=== PATIENT | female | born 1980 | race Caucasian/White ===

== ENCOUNTER 2022-11-05 11:31 | Emergency (ER) | payer MEDICARE, MEDICAID ==
[~2022-11-05 11:31] MED LIST: ALBUTEROL
--- NOTE | 2022-11-05 11:43 | ED Upper Extremity ---
General Chief Complaint: Upper Extremity Stated Complaint: RIGHT HAND SWOLLEN/PAINFUL History of Present Illness Date Seen by Provider: Nov 05, 2022 Time Seen by Provider: 11:40 Initial Comments 42-year-old female with PMH of right carpal tunnel surgery few years ago, is here with right hand and wrist swelling with pain. Pain is also radiating up her right arm. 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 Denies fever and chills, injury, falls, trauma. Patient went to [facility] yesterday but was told to follow up with her PCP so she came here today. Allergies and Home Medications Allergies Uncoded Allergies: pcn (Allergy, Unknown, 11/05/22) Patient Home Medication List Home Medication List Reviewed: Yes , (Reported) Entered as Reported by: ANNI MUÑOZ on 01/03/092231 Review of Systems Constitutional: no symptoms reported EENTM: no symptoms reported Respiratory: no symptoms reported Cardiovascular: no symptoms reported Gastrointestinal: no symptoms reported Genitourinary: no symptoms reported Musculoskeletal: see HPI, joint pain, joint swelling, muscle pain, muscle stiffness Skin: no symptoms reported Psychiatric/Neurological: No Symptoms Reported Past Wdiehpw-Qddfgi-Edjyhh Hx Patient Social History Tobacco Use?: Yes Tobacco type used: Cigarettes Smoking Status: Current Everyday Smoker Use of E-Cig and/or Vaping dev: No Substance use?: No Alcohol Use?: No Pt feels they are or have been: No Immunizations Up To Date Influenza Vaccine Up-to-Date: No; Not Current First/Initial COVID19 Vaccinat: Yes COVID19 Vaccine [employer]: [employer] Past Medical History Surgery/Hospitalization HX: Asthma; Carpal Tunnel; ; Hysterectomy Physical Exam Vital Signs Vital Signs - First Documented 11/05/22 11:34 Temp 36.3 Pulse 106 Resp 16 B/P (MAP) 114/100 (105) Pulse Ox 97 O2 Delivery Room Air Capillary Refill : Height, Weight, BMI Height: '" Weight: lbs. oz. kg; BMI Method: General Appearance: WD/WN, no apparent distress HEENT: PERRL/EOMI Neck: full range of motion Back: normal inspection Shoulder: normal inspection, non-tender, no evidence of injury, normal ROM Elbow/Forearm: normal inspection, non-tender, no evidence of injury, normal ROM, Right Wrist: Yes no evidence of injury, Yes limited ROM (Due to swelling and pain), Yes pain, Yes soft tissue tenderness, Yes swelling (Swelling of right hand and right wrist, nonpitting. Overlying skin is not red. Not warm to touch. N/V bundle intact) Hand: Right, soft tissue tenderness, stiffness, swelling Neurologic/Tendon: normal sensation Neurologic/Psychiatric: alert, normal mood/affect, oriented x 3 Skin: normal color Progress/Results/Core Measures Results/Orders My Orders Orders - ORACIO CROFT MD Hand 3 View Right (11/05/22 11:44) Wrist 3 View Right (11/05/22 11:44) Ketorolac Injection (Toradol Injection) (11/05/22 12:00) Medications Given in ED Current Medications Medications Dose Ordered Sig/Melissa Route Start Time Stop Time Status Last Admin Dose Admin Ketorolac Tromethamine 30 mg ONCE ONCE IM 11/05/22 12:00 11/05/22 12:01 DC 11/05/22 11:57 30 MG Vital Signs/I&O 11/05/22 11:34 Temp 36.3 Pulse 106 Resp 16 B/P (MAP) 114/100 (105) Pulse Ox 97 O2 Delivery Room Air Progress Progress Note : Progress Note 1. RIGHT CARPAL TUNNEL SYNDROME: - XR RIGHT HAND/ WRIST: no fracture - Toradol im STAT - Cock-up splint given -Advised to follow-up with PCP for physical therapy referral, and also follow-up with Orthopedics who did her carpal tunnel surgery to follow-up for reassessment -Advised ibuprofen as needed for pain -The patient was seen in the ED, and treated appropriately to presentation at a specific point in time. Patient is informed that there is a possibility that disease and illness can evolve and change in acuity rapidly or slowly after patient is discharged from the ER. Precautionary advice given to the patient for immediate return to ER if symptoms worsen or do not resolve, and to seek emergency care sooner rather than later. Pt also advised on the importance of PCP follow up and compliance with management and follow up plan with PCP and/or specialist, as this is part of the management plan. Pt verbally expressed understanding. Diagnostic Imaging Diagonstic Imaging: Xray Plain Films/CT/US/NM/MRI: hand, other Comments [facility], [place] NAME: RY HERNANDEZ [facility] REC#: [id number] PT STATUS: REG ER : 1980 PHYSICIAN: ORACIO CROFT MD ADMIT DATE: 11/05/22/ER FS Draft Date of Exam:11/05/22 HAND 3 VIEW RIGHT INDICATION: Right hand and wrist swelling. No reported injury. FINDINGS: There appears to be diffuse dorsal right hand soft tissue edema. There is no identified fracture or bone resorption. There is no foreign body or evidence of soft tissue gas. IMPRESSION: Diffuse soft tissue swelling of the right hand without identified fracture or malalignment. No foreign body evident. Dictated on workstation # [id number] Dict: 11/05/22 1206 Trans: 11/05/22 1210 HANNY [id number] Interpreted by: JESSICA LOCKHART MD Electronically signed by: [facility], [place] NAME: RY HERNANDEZ [facility] REC#: [id number] PT STATUS: REG ER : 1980 PHYSICIAN: ORACIO CROFT MD ADMIT DATE: 11/05/22/ER FS Draft Date of Exam:11/05/22 WRIST 3 VIEW RIGHT INDICATION: Right hand and wrist swelling. No reported injury. COMPARISON: Correlation is made with radiographs of the hand from this same date. FINDINGS: Dorsal soft tissue swelling and edema are present within the soft tissues of the right wrist. Alignment is normal. There is no fracture. There is no bone resorption. There is no soft tissue gas or foreign body. IMPRESSION: Diffuse right hand and wrist soft tissue swelling and edema. No fracture or malalignment. No foreign body. Dictated on workstation # [id number] Dict: 11/05/22 1207 Trans: 11/05/22 1211 HANNY [id number] Interpreted by: JESSICA LOCKHART MD Electronically signed by: Departure Impression Primary Impression: Right carpal tunnel syndrome Disposition: 01 HOME, SELF-CARE Condition: Stable Departure-Patient Inst. Referrals: LIDIA MARTEL MD (PCP/Family) Primary Care Physician Patient Instructions: Carpal Tunnel Syndrome (DC), Carpal Tunnel Exercises Add. Discharge Instructions: - Cock-up splint given -Advised to follow-up with PCP for physical therapy referral, and also follow-up with Orthopedics who did her carpal tunnel surgery to follow-up for reassessment - List of carpal tunnel exercises given -Advised ibuprofen as needed for pain All discharge instructions reviewed with patient and/or family. Voiced understanding. Work/School Note: Work Release Form Date Seen in the Emergency Department: Nov 05, 2022 Return to Work: Nov 08, 2022 Restrictions: Need Release from Doctor Other Restrictions Listed Below: Must use splint while working & work adjustments should be made accordingly ORACIO CROFT MD Nov 05, 2022 11:43
[2022-11-05] MEDS ORDERED: KETOROLAC 30 MG/ML VIAL IM ONE (12:00)
--- NOTE | 2022-11-05 12:10 | Diagnostic Imaging Report ---
INDICATION: Right hand and wrist swelling. No reported injury. FINDINGS: There appears to be diffuse dorsal right hand soft tissue edema. There is no identified fracture or bone resorption. There is no foreign body or evidence of soft tissue gas. IMPRESSION: Diffuse soft tissue swelling of the right hand without identified fracture or malalignment. No foreign body evident. Dictated by: Dictated on workstation # [id number]
--- NOTE | 2022-11-05 12:11 | Diagnostic Imaging Report ---
INDICATION: Right hand and wrist swelling. No reported injury. COMPARISON: Correlation is made with radiographs of the hand from this same date. FINDINGS: Dorsal soft tissue swelling and edema are present within the soft tissues of the right wrist. Alignment is normal. There is no fracture. There is no bone resorption. There is no soft tissue gas or foreign body. IMPRESSION: Diffuse right hand and wrist soft tissue swelling and edema. No fracture or malalignment. No foreign body. Dictated by: Dictated on workstation # [id number]
[2022-11-05 12:23] VITALS: BP 104/67
== END 2022-11-05 12:22 | disposition home or self-care (01) ==
LOC: EDUNIT# 11:31 → ER FS 11:34
DX: G56.01 Carpal tunnel syndrome, right upper limb (principal); F17.210 Nicotine dependence, cigarettes, uncomplicated; Z28.311 Partially vaccinated for COVID-19
CPT/HCPCS: 73110; 73130